=== PATIENT | female | born 1985 | race Caucasian/White ===

== ENCOUNTER 2017-07-31 13:15 | Emergency (ER) | payer MEDICAID ==
[~2017-07-31] VITALS: Ht 160 cm; Wt 114.0 kg
[2017-07-31] MEDS ORDERED: HYDROcodone/APAP 7.5-325MG/15ML UDC PO STA (14:42)
[2017-07-31] MEDS ORDERED: ONDANSETRON ODT 8 MG PO ONE (14:50)
[2017-07-31] MEDS ORDERED: DEXAMETHASONE 4 MG TABLET PO ONE (15:00)
[2017-07-31] MEDS ORDERED: HYDROcodone/APAP 7.5-325MG/15ML UDC ONE (15:01)
[2017-07-31] MEDS ORDERED: DEXAMETHASONE 4 MG TABLET ONE (15:01)
[2017-07-31] MEDS ORDERED: ONDANSETRON ODT 8 MG ONE (15:02)
[2017-07-31 15:32] VITALS: BP 117/83
== END 2017-07-31 15:34 | disposition home or self-care (01) ==
LOC: ED 15:28
DX: J03.90 Acute tonsillitis, unspecified (principal); Z88.0 Allergy status to penicillin; F17.210 Nicotine dependence, cigarettes, uncomplicated
CPT/HCPCS: 99284; Q0162

== ENCOUNTER 2017-12-07 09:28 | Emergency (ER) | payer MEDICAID ==
[~2017-12-07] VITALS: Ht 160 cm; Wt 111.0 kg
[2017-12-07] MEDS ORDERED: KETOROLAC 30 MG/1 ML IM ONE (10:30)
[2017-12-07] MEDS ORDERED: METHOCARBAMOL 750 MG TABLET PO ONE (10:30)
[2017-12-07] MEDS ORDERED: METHOCARBAMOL 750 MG TABLET ONE (10:32)
[2017-12-07] MEDS ORDERED: KETOROLAC 30 MG/1 ML ONE (10:32)
[2017-12-07 11:15] VITALS: BP 112/68
== END 2017-12-07 11:22 | disposition home or self-care (01) ==
LOC: ED 11:05
DX: S39.012A Strain of muscle, fascia and tendon of lower back, initial encounter (principal); G89.29 Other chronic pain; Z87.891 Personal history of nicotine dependence; Z88.0 Allergy status to penicillin; W10.9XXA Fall (on) (from) unspecified stairs and steps, initial encounter; Y93.89 Activity, other specified; Y92.009 Unspecified place in unspecified non-institutional (private) residence as the place of occurrence of the external cause; Y99.8 Other external cause status
CPT/HCPCS: 72110; 96372; 99284; J1885

== ENCOUNTER 2018-08-08 09:38 | Emergency (ER) | payer MEDICAID, OTHER ==
[~2018-08-08] VITALS: Ht 160 cm; Wt 108.7 kg
[2018-08-08] MEDS ORDERED: KETOROLAC 30 MG/1 ML ONE (10:17)
[2018-08-08] MEDS ORDERED: KETOROLAC 30 MG/1 ML IM ONE (10:30)
[2018-08-08 10:34] LABS: BASOPHILS # (AUTO) 0.02 x10^3/uL (0-0.1); BASOPHILS % (AUTO) 0 % (0-1); EOSINOPHILS # (AUTO) 0.32 x10^3/uL (0-0.4); EOSINOPHILS % (AUTO) 5 % (1-7); LYMPHOCYTES # (AUTO) 2.91 x10^3/uL (1-3.4); LYMPHOCYTES % (AUTO) 45 % (22-44); MD NO; MEAN CORPUSCULAR HEMOGLOBIN 30.3 pg (27.0-34.8); MEAN PLATELET VOLUME 8.1 fL (7.4-10.4); MONOCYTES # (AUTO) 0.41 x10^3/uL (0.2-0.8); MONOCYTES % (AUTO) 6 % (2-9); NEUTROPHILS # (AUTO) 2.87 x10^3/uL (1.8-6.8); NEUTROPHILS % (AUTO) 44 % (42-75); PLATELET COUNT 277 x10^3/uL (130-400); RED BLOOD COUNT 4.53 x10^6/uL (3.82-5.3); RED CELL DISTRIBUTION WIDTH 14.5 % (9.6-15.2)
[2018-08-08 10:43] LABS: ALBUMIN 3.9 g/dL (3.4-5.0); ANION GAP 6 mmol/L (5-15); CALCIUM 8.5 mg/dL (8.5-10.1); CHLORIDE 111 mmol/L (98-107); CREATININE 0.95 mg/dL (0.55-1.02)
[2018-08-08 10:44] LABS: CULTURE INDICATED? YES; MICROSCOPIC INDICATED
[2018-08-08 11:40] VITALS: BP 111/59
== END 2018-08-08 12:25 | disposition home or self-care (01) ==
LOC: ED 10:18
DX: N30.01 Acute cystitis with hematuria (principal); E66.9 Obesity, unspecified; Z88.0 Allergy status to penicillin
CPT/HCPCS: 36415; 76830; 80048; 81001; 82040; 84703; 85025; 87086; 96372; 99284; J1885

== ENCOUNTER 2018-09-17 12:28 | Emergency (ER) | payer MEDICAID ==
[~2018-09-17] VITALS: Ht 160 cm; Wt 105.0 kg
--- NOTE | 2018-09-17 12:55 | NUR ---
[facility]
[2018-09-17 13:29] LABS: BASOPHILS # (AUTO) 0.03 x10^3/uL (0-0.1); BASOPHILS % (AUTO) 0 % (0-1); EOSINOPHILS # (AUTO) 0.23 x10^3/uL (0-0.4); EOSINOPHILS % (AUTO) 3 % (1-7); LYMPHOCYTES # (AUTO) 3.21 x10^3/uL (1-3.4); LYMPHOCYTES % (AUTO) 36 % (22-44); MD NO; MEAN CORPUSCULAR HEMOGLOBIN 30.3 pg (27.0-34.8); MEAN CORPUSCULAR VOLUME 89.2 fL (80-100); MONOCYTES # (AUTO) 0.55 x10^3/uL (0.2-0.8); MONOCYTES % (AUTO) 6 % (2-9); NEUTROPHILS # (AUTO) 5.02 x10^3/uL (1.8-6.8); NEUTROPHILS % (AUTO) 56 % (42-75); PLATELET COUNT 313 x10^3/uL (130-400); RED BLOOD COUNT 4.98 x10^6/uL (3.82-5.3); RED CELL DISTRIBUTION WIDTH 14.4 % (9.6-15.2)
--- NOTE | 2018-09-17 13:35 | NUR ---
THIS IS A 33 YO FEMALE WHO PRESENTS TO THE ER C/O VB AND "EXTREME" CRAMPING X 3 DAYS. PT REPORTS GOING THROUGH PADS/TOWELS/ECT. PT REPORTS THAT SHE HAS HAD IRREGULAR PERIODS SINCE HER SON WAS BORN 8 YEARS AGO. PT AO X 4. SKIN PWD. RESP EVEN AND EQAUL. PT AWARE THAT WE ARE WAITING FOR LAB/IMAGING RESULTS. CALL LIGHT WITHIN REACH. WILL CONT TO MONITOR PT.
[2018-09-17 13:37] LABS: INTERNATIONAL NORMALIZED RATIO 0.96 (0.93-1.1); PROTHROMBIN TIME 10.2 Seconds (9.6-11.5)
[2018-09-17 13:39] LABS: ALANINE AMINOTRANSFERASE 86 U/L (12-78); ANION GAP 6 mmol/L (5-15); CHLORIDE 107 mmol/L (98-107); CREATININE 1.05 mg/dL (0.55-1.02)
[2018-09-17 13:43] LABS: ALKALINE PHOSPHATASE 80 U/L (45-117); BILIRUBIN,TOTAL 0.3 mg/dL (0.2-1.0); TOTAL PROTEIN 8.9 g/dL (6.4-8.2)
[2018-09-17 14:28] VITALS: BP 114/80
== END 2018-09-17 14:32 | disposition home or self-care (01) ==
LOC: ED 13:30
DX: N92.0 Excessive and frequent menstruation with regular cycle (principal); E66.01 Morbid (severe) obesity due to excess calories; Z68.41 Body mass index [BMI] 40.0-44.9, adult
CPT/HCPCS: 36415; 80053; 84443; 84703; 85025; 85610; 85730; 86850; 86900; 99283

== ENCOUNTER 2020-03-13 05:37 | Emergency (ER) | payer MEDICAID, OTHER ==
[~2020-03-13] VITALS: Ht 160 cm; Wt 101.0 kg
[2020-03-13 06:25] LABS: ALBUMIN 3.8 g/dL (3.4-5.0); ANION GAP 10 mmol/L (5-15); BASOPHILS # (AUTO) 0.03 x10^3/uL (0-0.1); BASOPHILS % (AUTO) 0 % (0-1); CALCIUM 9.5 mg/dL (8.5-10.1); CHLORIDE 110 mmol/L (98-107); CREATININE 1.06 mg/dL (0.55-1.02); EOSINOPHILS # (AUTO) 0.22 x10^3/uL (0-0.4); EOSINOPHILS % (AUTO) 2 % (1-7); LYMPHOCYTES # (AUTO) 2.33 x10^3/uL (1-3.4); LYMPHOCYTES % (AUTO) 26 % (22-44); MD NO; MEAN CORPUSCULAR HEMOGLOBIN 30.2 pg (27.0-34.8); MEAN CORPUSCULAR HGB CONC 33.3 g/dL (32.4-35.8); MEAN CORPUSCULAR VOLUME 90.8 fL (80-100); MEAN PLATELET VOLUME 8.5 fL (7.4-10.4); MONOCYTES # (AUTO) 0.22 x10^3/uL (0.2-0.8); MONOCYTES % (AUTO) 3 % (2-9); NEUTROPHILS # (AUTO) 6.29 x10^3/uL (1.8-6.8); NEUTROPHILS % (AUTO) 69 % (42-75); PLATELET COUNT 282 x10^3/uL (130-400); RED BLOOD COUNT 4.51 x10^6/uL (3.82-5.3)
[2020-03-13] MEDS ORDERED: SODIUM CHLORIDE FLUSH 10ML SYR IVF ONE (06:30)
[2020-03-13] MEDS ORDERED: SODIUM CHLORIDE 0.9% 1,000ML IVBOLUS ONE (06:30)
[2020-03-13] MEDS ORDERED: ONDANSETRON 2MG/ML, 2ML IVPush ONE (06:30)
[2020-03-13] MEDS ORDERED: HYDROmorphone 1 MG/ML, 1ML INJ ONE ×2 (07:10→07:47)
[2020-03-13] MEDS ORDERED: ONDANSETRON 2MG/ML, 2ML ONE (07:10)
[2020-03-13] MEDS: HYDROmorphone 1 MG/ML, 1ML INJ IVPush PRN ×2 (07:18→07:49)
--- NOTE | 2020-03-13 07:19 | NUR ---
PT BACK FROM US AT THIS TIME, PT WITH ABD PAIN RATING 8/10. PT MEDICATED PER MAR, VSS AT THIS TIME, NO OTHER NEEDS
[2020-03-13] MEDS ORDERED: HYDROmorphone 2 MG/ML, 1ML IVPush PRN (08:00)
[2020-03-13 08:52] VITALS: BP 105/61
== END 2020-03-13 08:55 | disposition home or self-care (01) ==
LOC: ED 07:28
DX: O03.4 Incomplete spontaneous abortion without complication (principal)
CPT/HCPCS: 36415; 76801; 80048; 82040; 84702; 85025; 86901; 96374; 96375; 96376; 99284; J1170; J2405; J7030

== ENCOUNTER 2021-03-28 11:28 | Emergency (ER) | payer SELFPAY ==
[~2021-03-28] VITALS: Ht 160 cm; Wt 103.0 kg
[2021-03-28 15:24] VITALS: BP 114/73
== END 2021-03-28 17:05 | disposition left against medical advice (07) ==
LOC: ED 14:02
DX: M54.5 Low back pain (principal)
CPT/HCPCS: 72110; 99283